=== PATIENT | male | born 1995 | race Caucasian/White ===

== ENCOUNTER 2018-06-21 19:56 | Emergency (ER) | payer SELFPAY ==
--- NOTE | 2018-06-21 22:29 | ED Physician Chart ---
ED Chief Complaint/HPI - Patient Information Date Seen:: 06/21/18 Time Seen:: 22:20 Chief Complaint:: blacking out History of Present Illness:: Patient states he has been blacking out recently and felt something pop in his head tonight. He requests a CAT scan of his head. He last used crystal meth one hour ago. Allergies:: Allergies Allergy/AdvReac Type Severity Reaction Status Date / Time No Known Allergies Allergy Verified 06/21/18 20:14 Vitals:: Vital Signs - 8 hr 06/21/18 20:10 Temp 98.3 F HR 110 RR 17 BP 110/75 O2 Sat % 98 Historian:: Patient Review:: Nurse's Note Reviewed ED Review of Systems - Review of Systems General/Constitutional: No fever, No chills, No weight loss, No weakness, No diaphoresis, No edema, No loss of appetite Skin: No skin lesions, No rash, No bruising Head: No headache, No light-headedness Eyes: No loss of vision, No pain, No diplopia ENT: No earache, No nasal drainage, No sore throat, No tinnitus Neck: No neck pain, No swelling, No thyromegaly, No stiffness, No mass noted Cardio Vascular: No chest pain, No palpitations, No PND, No orthopnea, No edema Pulmonary: No SOB, No cough, No sputum, No wheezing GI: No nausea, No vomiting, No diarrhea, No pain, No melena, No hematochezia, No constipation, No hematemesis G/U: No dysuria, No frequency, No hematuria Musculoskeletal: No bone or joint pain, No back pain, No muscle pain Endocrine: No polyuria, No polydipsia Psychiatric: No prior psych history, No depression, No anxiety, No suicidal ideation Hematopoietic: No bruising, No lymphadenopathy Allergic/Immuno: No urticaria, No angioedema Neurological: Syncope, No focal symptoms, No weakness, No paresthesia, No headache, No seizure, No dizziness, No confusion, No vertigo ED Past Medical History - Past Medical History Past Medical History: No significant medical hx Family History: Diabetes Melitus, HTN Social History: Smoker, Alcohol, Illicit Drug Use Surgical History: None Psychiatricy History: None Medication: None Family Medical History - Family Member Mother History Unknown: Yes ED Physical Exam - Physical Examination General/Constitutional: Awake, Well-developed, well-nourished, Alert, No distress, GCS 15, Non-toxic appearing, Ambulatory Head: Atraumatic Eyes: Lids, conjuctiva normal, PERRL, EOMI Other Eyes comments:: Pupils about 1-1/4 mm diameter Skin: Nl inspection, No rash, No skin lesions, No ecchymosis, Well hydrated, No lymphadenopathy ENMT: External ears, nose nl, Nasal exam nl, Lips, teeth, gums nl Neck: Nontender, Full ROM w/o pain, No JVD, No nuchal rigidity, No bruit, No mass, No stridor Respiratory: Nl effort/Exclusion, Clear to Auscultation, No Wheeze/Rhonchi/Rales Cardio Vascular: RRR, No murmur, gallop, rubs, NL S1 S2 GI: No tenderness/rebounding/guarding, No organomegaly, No hernia, Normal BS's, Nondistended, No mass/bruits, No McBurney tenderness : No CVA tenderness Extremities: No tenderness or effusion, Full ROM, normal strength in all extremities, No edema, Normal digits & nails Neuro/Psych: Alert/oriented, DTR's symmetric, Normal sensory exam, Normal motor strength, Judgement/insight normal, Mood normal, Normal gait, No focal deficits Misc: Normal back, No paraspinal tenderness ED Assessment - Assessment General Assessment: A CT of the head is not indicated ED Septic Shock - . Is Septic Shock (SBP<90, OR Lactate>4 mmol\L) present?: No - <6hrs of presentation: Vital Signs: Vital Signs - 8 hr 06/21/18 20:10 Temp 98.3 F HR 110 RR 17 BP 110/75 O2 Sat % 98 ED Reassessment (Disposition) - Reassessment Reassessment Condition:: Unchanged - Diagnosis Diagnosis:: Illicit drug use (crystal meth) - Patient Disposition Discharge/Transfer:: Home Condition at Disposition:: Stable, Unchanged
== END 2018-06-21 22:46 | disposition home or self-care (01) ==
LOC: ER 19:56
DX: F19.90 Other psychoactive substance use, unspecified, uncomplicated (principal); R55 Syncope and collapse; F17.200 Nicotine dependence, unspecified, uncomplicated
CPT/HCPCS: Z7502

== ENCOUNTER 2018-09-05 21:04 | Emergency (ER) | payer MEDICAID ==
--- NOTE | 2018-09-05 21:32 | ED Physician Chart ---
ED Chief Complaint/HPI - Patient Information Date Seen:: 09/05/18 Time Seen:: 21:17 Chief Complaint:: rash History of Present Illness:: this is a 23 yo male with a rash over the upper extremities and part of the trunk, with the sudden onset over the last two days. the lesion appear to be some insect bites and some possibly strep- appearance. Allergies:: Allergies Allergy/AdvReac Type Severity Reaction Status Date / Time No Known Allergies Allergy Verified 06/21/18 20:14 Vitals:: Vital Signs - 8 hr 09/05/18 21:14 Temp 99.4 F HR 117 RR 20 BP 117/95 O2 Sat % 98 Historian:: Patient Review:: Nurse's Note Reviewed ED Review of Systems - Review of Systems General/Constitutional: No fever, No chills, No weight loss, No weakness, No diaphoresis, No edema, No loss of appetite Skin: Skin lesions (over the upper body), No rash, No bruising Head: No headache, No light-headedness Eyes: No loss of vision, No pain, No diplopia ENT: No earache, No nasal drainage, No sore throat, No tinnitus Neck: No neck pain, No swelling, No thyromegaly, No stiffness, No mass noted Cardio Vascular: No chest pain, No palpitations, No PND, No orthopnea, No edema Pulmonary: No SOB, No cough, No sputum, No wheezing GI: No nausea, No vomiting, No diarrhea, No pain, No melena, No hematochezia, No constipation, No hematemesis G/U: No dysuria, No frequency, No hematuria Musculoskeletal: No bone or joint pain, No back pain, No muscle pain Endocrine: No polyuria, No polydipsia Psychiatric: No prior psych history, No depression, No anxiety, No suicidal ideation Hematopoietic: No bruising, No lymphadenopathy Allergic/Immuno: No urticaria, No angioedema Neurological: No syncope, No focal symptoms, No weakness, No paresthesia, No headache, No seizure, No dizziness, No confusion, No vertigo ED Past Medical History - Past Medical History Obtainable: Yes Past Medical History: No significant medical hx Family History: None Social History: Smoker, Alcohol, Illicit Drug Use, Single Surgical History: None Psychiatricy History: None Medication: Reviewed Family Medical History - Family Member Mother History Unknown: Yes Hx Family Diabetes: Yes ED Physical Exam - Physical Examination General/Constitutional: Awake, Well-developed, well-nourished, Alert, No distress, GCS 15, Non-toxic appearing, Ambulatory Head: Atraumatic Eyes: Lids, conjuctiva normal, PERRL, EOMI Skin: Nl inspection, No ecchymosis, Well hydrated, No lymphadenopathy Other Skin comments:: there are strep-like lesions and insect bite-like area over both upper extremities. ENMT: External ears, nose nl, Nasal exam nl, Lips, teeth, gums nl Neck: Nontender, Full ROM w/o pain, No JVD, No nuchal rigidity, No bruit, No mass, No stridor Respiratory: Nl effort/Exclusion, Clear to Auscultation, No Wheeze/Rhonchi/Rales Cardio Vascular: RRR, No murmur, gallop, rubs, NL S1 S2 GI: No tenderness/rebounding/guarding, No organomegaly, No hernia, Normal BS's, Nondistended, No mass/bruits, No McBurney tenderness : No CVA tenderness Extremities: No tenderness or effusion, Full ROM, normal strength in all extremities, No edema, Normal digits & nails Neuro/Psych: Alert/oriented, DTR's symmetric, Normal sensory exam, Normal motor strength, Judgement/insight normal, Mood normal, Normal gait, No focal deficits Misc: Normal back, No paraspinal tenderness ED Assessment - Assessment General Assessment: skin infection ED Septic Shock - . Is Septic Shock (SBP<90, OR Lactate>4 mmol\L) present?: No - <6hrs of presentation: Vital Signs: Vital Signs - 8 hr 09/05/18 21:14 Temp 99.4 F HR 117 RR 20 BP 117/95 O2 Sat % 98 ED Reassessment (Disposition) - Reassessment Reassessment Condition:: Unchanged - Diagnosis Diagnosis:: skin infections - Aftercare/Follow up Instructions Aftercare/Follow-Up Instructions:: Counseled pt regarding lab results/diagnosis & need follow up, Refer to Discharge Instructions, Counseled pt & family regarding lab results/diagnosis & need follow up Medication Prescribed:: [id number] - Patient Disposition Discharge/Transfer:: Home Condition at Disposition:: Unchanged
== END 2018-09-05 22:35 | disposition home or self-care (01) ==
LOC: ER 21:04
DX: L08.9 Local infection of the skin and subcutaneous tissue, unspecified (principal); F17.200 Nicotine dependence, unspecified, uncomplicated
CPT/HCPCS: 99283; 96372; J0696; Z7502

== ENCOUNTER 2018-11-08 23:57 | Emergency (ER) | payer MEDICAID ==
[2018-11-09] MEDS ORDERED: Sulfamethoxazole/TMP 800/160mg Tab PO ONE (00:46)
--- NOTE | 2018-11-09 00:53 | ED Physician Chart ---
ED Chief Complaint/HPI - Patient Information Date Seen:: 11/09/18 Time Seen:: 00:40 Chief Complaint:: lesions on arms History of Present Illness:: Patient's had crusts on both arms for the last 3 years. Patient smokes crystal meth. Allergies:: Allergies Allergy/AdvReac Type Severity Reaction Status Date / Time No Known Allergies Allergy Verified 11/09/18 00:15 Vitals:: Vital Signs - 8 hr 11/09/18 00:05 Temp 98.6 F HR 99 RR 18 BP 124/82 O2 Sat % 99 Historian:: Patient Review:: Nurse's Note Reviewed ED Review of Systems - Review of Systems General/Constitutional: No fever, No chills Skin: Skin lesions Head: No headache Eyes: No loss of vision ENT: No earache Neck: No neck pain, No swelling Cardio Vascular: No chest pain, No palpitations Pulmonary: No SOB GI: No nausea, No vomiting, No diarrhea G/U: No dysuria Musculoskeletal: No bone or joint pain Endocrine: No polyuria Psychiatric: No prior psych history Hematopoietic: No bruising Allergic/Immuno: No urticaria Neurological: No syncope, No focal symptoms, No weakness ED Past Medical History - Past Medical History Past Medical History: No significant medical hx Family History: Heart disease, Diabetes Melitus, HTN Social History: Other Employment:: Does not smoke cigarets; smokes crystal meth; drinks alcohol occasionally Surgical History: other (extraction of wisdom teeth) Psychiatricy History: None Medication: None Family Medical History - Family Member Mother History Unknown: Yes Hx Family Diabetes: Yes ED Physical Exam - Physical Examination General/Constitutional: Awake, Well-developed, well-nourished, Alert, No distress, GCS 15, Non-toxic appearing, Ambulatory Head: Atraumatic Eyes: Lids, conjuctiva normal, PERRL, EOMI Other Skin comments:: several about 5 mm in diameter crusts both forearms ENMT: External ears, nose nl Neck: No nuchal rigidity Respiratory: Nl effort/Exclusion, Clear to Auscultation Cardio Vascular: RRR, No murmur, gallop, rubs GI: No tenderness/rebounding/guarding, No organomegaly : No CVA tenderness Extremities: Normal digits & nails Neuro/Psych: Alert/oriented, No focal deficits Misc: Normal back ED Assessment - Assessment General Assessment: Patient probably has MRSA of both forearms and scratched small abscesses ED Septic Shock - . Is Septic Shock (SBP<90, OR Lactate>4 mmol\L) present?: No - <6hrs of presentation: Vital Signs: Vital Signs - 8 hr 11/09/18 00:05 Temp 98.6 F HR 99 RR 18 BP 124/82 O2 Sat % 99 ED Reassessment (Disposition) - Reassessment Reassessment Condition:: Unchanged - Diagnosis Diagnosis:: MRSA - Aftercare/Follow up Instructions Aftercare/Follow-Up Instructions:: Refer to Discharge Instructions Medication Prescribed:: Bactrim DS No. 20 to take 1 twice a day - Patient Disposition Discharge/Transfer:: Home Condition at Disposition:: Stable, Unchanged
[2018-11-09] MEDS ORDERED: Sulfamethoxazole/TMP 800/160mg Tab ONE (00:54)
== END 2018-11-09 01:11 | disposition home or self-care (01) ==
LOC: ER 23:57
DX: A49.02 Methicillin resistant Staphylococcus aureus infection, unspecified site (principal)
CPT/HCPCS: Z7502